=== PATIENT | female | born 1965 | race Caucasian/White ===

== ENCOUNTER 2017-09-01 16:34 | Inpatient (IN) ==
--- OUTSIDE RECORDS SUMMARY | 2017-09-01 17:55 | External Medical Summary ---
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
--- OUTSIDE RECORDS SUMMARY | 2017-09-01 17:55 | External Medical Summary ---
:1965 Author Organization [employer] Care Team Providers Name Role Phone Crystal Goldstein Provider Role Unavailable Allergies No Known Allergies Problems No Known Problems Medications No Known Medications Results No Known Results Summary Purpose [employer] Submission
[2017-09-01] MEDS ORDERED: NS 1,000 ML IV ONE (18:07)
--- NOTE | 2017-09-01 18:27 | Emergency Department Report ---
Extremity Problem HPI - General Chief complaint: Extremity Problem,Nontraumatic Stated complaint: R leg Sore turning black Time Seen by Provider: 09/01/17 17:49 Source: patient, RN notes reviewed, old records reviewed Mode of arrival: ambulatory Limitations: no limitations - History of Present Illness HPI Narrative: 51yo woman presents to the ER for evaluation of RLE redness and swelling. Pt developed redness, pain, and swelling on her right, medial knee appx one month ago. Since then, pt has been evaluated and treated numerous times for superficial thrombophlebitis - has had at least 3 DVT US that were negative for DVT. Pt has taken NSAIDs, various atbx, and norco all without relief of her sx. She represents to the ER tonight, two days after her last eval/US for development of increasing redness, a purple locus in the center, and severe pain. MD Complaint: extremity pain Onset (ago): week(s) (4) Consistency: constant Location: right, lower extremity, knee Severity scale (1-10): 8 Quality: burning, stabbing, sharp Radiation: none Relieving factors: nothing Exacerbating factors: range of motion, palpation Associated symptoms: denies other symptoms - Related Data Home Medications Medication Instructions Recorded Confirmed Acetaminophen [Acetaminophen Extra 1,000 mg PO Q6H PRN 08/19/17 09/01/17 Strength] cephALEXin [Cephalexin] 500 mg PO QID 09/01/17 09/01/17 Previous Rx's Medication Instructions Recorded Hydrocodone/APAP 5/325 [[place] 1 - 2 tab PO Q4-6HPRN PRN #20 tab 08/29/17 5/325] Sulfamethox/Tmp [Bactrim Ds] 1 tab PO BID #20 tab 08/29/17 Allergies Allergy/AdvReac Type Severity Reaction Status Date / Time No Known Allergies Allergy Verified 09/01/17 17:06 Review of Systems All systems: reviewed and negative except as stated Musculoskeletal: Reports: as per HPI, joint swelling. 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 Physical Exam - Limitations Limitations: no limitations - General General appearance: alert, in no apparent distress - Normal Exams: Head:: Normocephalic without trauma Eyes:: Pupils are PERRLA w/ EOMI, No scleral icterus, irritation, or foreign bodies noted ENMT:: No facial trauma, nasal exudates, pharyngeal erythema, or exudates are noted Neck:: Full range of motion, without adenopathy Lymphatic:: No lymphadenopathy Musculoskeletal:: No tenderness, or deformity noted Neurological:: Patient is alert, and oriented Psychiatric:: Patient exhibits, appropriate attention - Expanded Lower Extremity Exam right 1 - Erythema, induration, and central purple locus of 2cm size 2 - Erythema, induration - Skin Skin exam: Present: warm, dry, intact, rash Course - Consultations Consultation #1: [place] Telemed: Will admit pt for observation, line placement, and coordination of outpt atbx. Vital Signs Temperature 98.7 F 09/01/17 16:45 Pulse Rate 72 09/01/17 16:45 Respiratory Rate 16 09/01/17 16:45 Blood Pressure 125/72 09/01/17 16:45 Pulse Oximetry 99 09/01/17 16:45 Temperature 97.6 F 09/01/17 21:32 Pulse Rate 88 09/01/17 21:36 Respiratory Rate 20 09/01/17 21:36 Blood Pressure 124/66 09/01/17 21:32 Pulse Oximetry 98 09/01/17 21:36 Extremity Problem, Nontraumati - MDM Narrative Medical decision making narrative: Pt with suppurative thrombophlebitis. After reviewing the relevant literature and treatment guidelines, IV atbx, blood culx, and labs ordered. Pt is not septic at this time. Discussed case with hospitalist, who will admit and treat overnight. Pt will need a line placed for outpt IV ATBX. Pt transferred to the floor for further care. - Differential Diagnosis Likely: gout, cellulitis, superficial thrombophlebitis (Suppurative thrombophlebitis), lower extremity edema. Unlikely: deep vein thrombosis of lower extremity - Medical Records Attestation: I reviewed the patient's medical records. - Lab Data Attestation: I reviewed the patient's lab results. Result diagrams: 09/01/17 18:28 09/01/17 18:27 Lab Results 09/01/17 09/01/17 09/01/17 Range/Units 18:27 18:28 19:20 WBC 6.4 (4.5-11.0) T/MM3 RBC 4.04 (4.00-5.20) M/MM3 Hgb 11.6 L (12-16) GM/DL Hct 35.5 L (36-46) % MCV 87.9 (80-100) UM3 MCH 28.7 (26-34) UUG MCHC 32.7 (31-37) GM/DL RDW Std Deviation 40.4 (36.9-50.2) FL Plt Count 246 (130-400) T/MM3 MPV 10.9 (9.4-12.4) UM3 Immature Gran % (Auto) 0.2 (0.0-0.5) % Neut % (Auto) 67.4 H (33-66) % Lymph % (Auto) 21.5 L (23-45) % [place] % (Auto) 9.5 H (0-9.0) % Eos % (Auto) 1.1 (0-4) % Baso % (Auto) 0.3 (0-2) % Neut # (Auto) 4.3 (1.8-7.7) T/MM3 Lymph # (Auto) 1.4 (1-4.8) T/MM3 [place] # (Auto) 0.6 (0-0.8) T/MM3 Eos # (Auto) 0.1 (0-0.5) T/MM3 Baso # (Auto) 0.0 (0-0.2) T/MM3 Abs Immat Gran (auto) 0.01 (0.00-0.03) T/MM3 Turbidity < 20 (0-20) Sodium 144 (134-144) MEQ/L Potassium 3.8 (3.6-5) MEQ/L Chloride 104 (98-107) MEQ/L Carbon Dioxide 26 (22-30) MEQ/L Anion Gap 14 (5-15) MEQ/L BUN 14.0 (7-17) MG/DL Creatinine 0.8 (0.7-1.2) mg/dL GFR Calculation 75 BUN/Creatinine Ratio 18 (6-26) RATIO Glucose 88 (65-110) MG/DL Calculated Osmolality 277 (261-280) MOSM/KG Calcium 9.3 (8.4-10.2) MG/DL Icterus Index < 2 (0-7) Plasma Lactate 0.6 (0.6-2.2) MMOL/L Specimen Hemolysis < 15 (0-25) Ur Collection Type Urine, void-cc/notcc Urine Color Yellow (YELLOW) Urine Clarity Clear Urine pH 6.0 (5.0-8.0) Ur Specific [place] >=1.030 H (1.015-1.025) Urine Protein 2+ A (NEGATIVE) Urine Glucose (UA) Negative (NEGATIVE) Urine Ketones Negative (NEGATIVE) Urine Occult Blood Trace-intact (NEGATIVE) Urine Nitrate Negative (NEGATIVE) Urine Bilirubin Negative (NEGATIVE) Urine Urobilinogen 2.0 (NORMAL) EU/DL Ur Leukocyte Esterase Negative (NEGATIVE) Urine RBC 0-1 (0-3) /HPF Urine WBC 0-1 (0-5) /HPF Ur Squamous Epith Cells 5-10 Urine Bacteria Trace H (NEGATIVE) Urine Mucus Present Ur Culture Indicated? Cult not indicated - Radiology Data Attestation: I reviewed the patient's radiology results. CXR: No acute CT pathology. Disposition Clinical Impression: superiative thrombophlebitis Disposition: To [facility] Condition: Stable - Seen By: physician
[2017-09-01] MEDS: SALINE FLUSH 10ml SYRINGE IVF PRN ×2 (19:02→22:04)
[2017-09-01] MEDS ORDERED: MORPHINE SULFATE 4mg INJECTION IVP PRN (20:33)
[2017-09-01] MEDS ORDERED: KETOROLAC 15 MG/ML INJECTION IVP ONE (20:33)
[2017-09-01] MEDS ORDERED: ONDANSETRON 4 MG/2 ML INJECTION IVP PRN (20:33)
[2017-09-01 21:38] VITALS: BMI 26.6
[2017-09-01] MEDS ORDERED: ENOXAPARIN 40 MG/0.4 ML INJECTION SQ ONE (22:00)
[2017-09-01] MEDS: CEFEPIME 1 GM in NS 100 ML IV ONE ×2 (22:00→23:00)
[2017-09-01] MEDS: ENOXAPARIN 40 MG/0.4 ML INJECTION SQ SCH (22:03)
[2017-09-01] MEDS ORDERED: DiphenhydrAMINE 50 MG/ML INJECTION IVP ONE (22:04)
[2017-09-01] MEDS ORDERED: ACETAMINOPHEN 650 MG/20.3 ML SOLUTION PO PRN (22:04)
--- NOTE | 2017-09-01 22:08 | History & Physical Report ---
History of Present Illness Date: 09/01/17 Chief complaint: R leg pain HPI: Patient seen via telemedicine with nursing assistance on 09/01/2017 Mrs. Hsu is a pleasant 51yo woman with h/o endometriosis, shingles, NFKB1 ( son with thrombocytopenia--an immune process with antibody formation to platelets with bleeding, etc, with patient only tested for this and positive...no bleeding diatheses). She presents with 2 weeks of R leg pain with courses of cephalexin and 2 days ago stared on bactrim after 2nd LE doppler negative for DVT. No fevers or chills, but nausea and emesis after taking available lortab. No sob or CP. No real varicose vein hx, and has not had trouble before. 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 Cholecystectomy 1999 Family History: Family History (Last Updated 05/24/17 @ 10:03 by Disha Stuart RN) Mother Aneurysm Maternal Grandmother Cancer of breast Maternal Aunt Cancer of breast Brother Lymphoblastic (diffuse) lymphoma, intra-abdominal lymph nodes Hodgkins disease Father Cancer of colon Family History Updates: mother of brain hemorrhage. 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 Medications Home Medications Medication Instructions Recorded Confirmed Type Acetaminophen [Acetaminophen Extra 1,000 mg PO Q6H PRN 08/19/17 09/01/17 History Strength] Hydrocodone/APAP 5/325 [[place] 1 - 2 tab PO Q4-6HPRN PRN #20 tab 08/29/17 Rx 5/325] Sulfamethox/Tmp [Bactrim Ds] 1 tab PO BID #20 tab 08/29/17 09/01/17 Rx cephALEXin [Cephalexin] 500 mg PO QID 09/01/17 09/01/17 History Allergies Allergy/AdvReac Type Severity Reaction Status Date / Time No Known Allergies Allergy Verified 09/01/17 17:06 Exam Vital Signs: Temperature 97.6 F 09/01/17 21:32 Pulse Rate 88 09/01/17 21:36 Respiratory Rate 20 09/01/17 21:36 Blood Pressure 124/66 09/01/17 21:32 Pulse Oximetry 98 09/01/17 21:36 Telemetry Rhythm: Sinus Rhythm Height/Weight/BMI: Height 1.73 m Weight 79.6 kg Body Mass Index 26.6 - Constitutional Present: mild distress - Routine HEENT Exam Head: Present: normocephalic, atraumatic Eye: Present: EOMI - Routine Neck Exam Present: full ROM - Routine Respiratory Exam Present: CTA bilaterally. Absent: accessory muscle use - Routine Cardiovascular Exam Present: RRR, S1, S2, no murmur - Routine Abdominal Exam Present: soft, normoactive bowel sounds. Absent: tenderness - Routine Extremities Exam Absent: cyanosis, clubbing, edema Comments: has a 3-4 cm area of darkness with no ulceration medial-posterior to R knee to thigh with nearly 10cm area around with erythema. Warm per nursing staph. Results - Labs CBC & Chem 7: 09/01/17 18:28 09/01/17 18:27 Assessment and Plan (1) Thrombophlebitis Current visit: Yes Status: Acute (2) Cellulitis Current visit: Yes Status: Acute Assessment and Plan: Superficial and now supperative thrombophlebitis with cellulitis--vancomycin with initial flushing improved with rate decreased. Benadryl IV once and monitor before the one time dose of cefepime prescribed by ED staff. Continue vanco with DVT prophylaxis lovenox, repeat labs and toradol once for pain ( likely would benefit from naproxen BID starting tomorrow with no recent NSAIDs) . May ultimately need gen surg consult if full abscess forms/evident. DVT Prophylaxis: Lovenox Resuscitation Status: Full Code - Physician Narrative Narrative: Date: 09/01/17 Time: 2204 Hospital Course Summary Disclaimer: The visit summary below is not to be considered part of the above Progress Note.
[2017-09-01] MEDS: LR 1,000 ML IV SCH (22:31)
--- NOTE | 2017-09-02 08:02 | XRay Report ---
Indication: Superficial thrombophlebitis PROCEDURE: XR chest 1V: Encounter: Initial Comparison: None FINDINGS: The lungs are clear. There is no abnormal airspace opacity, pleural effusion or pneumothorax identified. The heart size, pulmonary vasculature and mediastinum are within normal limits. No significant skeletal abnormality is seen. IMPRESSION: No acute cardiopulmonary abnormality. .
[2017-09-02] MEDS: LR 1,000 ML IV SCH (08:24)
[2017-09-02] MEDS: ACETAMINOPHEN 325 MG TABLET PO PRN ×2 (08:25→14:35)
[2017-09-02] MEDS: VANCOMYCIN 1,500 MG in NS 500 ML IV SCH (09:58)
--- NOTE | 2017-09-02 10:48 | History & Physical Report ---
History of Present Illness Date: 09/02/17 HPI: Patient is a 51 year old female with history of NFKB1 gene mutation (reportedly asymptomatic) who presents with concerns of thrombophlebitis. Patient has has recurrent issues in the same area of inner right knee/thigh for the previous 2 years. She has been managed by PCP and has had multiple ultrasounds negative for DVT over that time. She was recently started on Keflex and Bactrim for two days. She presented to ED due to color change and increase in size of area. She was admitted for concerns of suppurative thrombophlebitis. Denies any fever or chills. [facility] Mouth/Throat: Absent: bleeding gums - Cardiovascular Cardiovascular: Absent: chest pain, palpitations Vascular: Present: phlebitis. Absent: Raynaud's, intermittent claudication, pedal edema, varicosities - Respiratory Respiratory: Absent: cough, dyspnea - Gastrointestinal Gastrointestinal: Absent: abdominal pain, change in bowel habits - Musculoskeletal Musculoskeletal: Absent: arthralgias, myalgias - Integumentary/Breasts Integumentary: Present: erythema, lesions. 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 Cholecystectomy 1999 Family History Updates: Family History (Last Updated 05/24/17 @ 10:03 by Disha Stuart RN). Mother. Aneurysm. Maternal Grandmother. Cancer of breast. Maternal Aunt. Cancer of breast. Brother. Lymphoblastic (diffuse) lymphoma, intra-abdominal lymph nodes. Hodgkins disease. Father. Cancer of colon - Social History Smoking status: Never smoker Medications Home Medications Medication Instructions Recorded Confirmed Type Acetaminophen [Acetaminophen Extra 1,000 mg PO Q6H PRN 08/19/17 09/01/17 History Strength] Hydrocodone/APAP 5/325 [[place] 1 - 2 tab PO Q4-6HPRN PRN #20 tab 03/26/18 03/29/ 18 Rx 5/325] Sulfamethox/Tmp [Bactrim Ds] 1 tab PO BID #20 tab 08/29/17 09/01/17 Rx cephALEXin [Cephalexin] 500 mg PO QID 09/01/17 09/01/17 History Allergies Allergy/AdvReac Type Severity Reaction Status Date / Time No Known Allergies Allergy Verified 09/01/17 17:06 Exam Vital Signs: Temperature 97.2 F 09/02/17 07:29 Pulse Rate 74 09/02/17 07:29 Respiratory Rate 12 09/02/17 07:29 Blood Pressure 101/69 09/02/17 07:29 Pulse Oximetry 99 09/02/17 07:29 Height/Weight/BMI: Height 5 ft 8 in Weight 80.3 kg Body Mass Index 26.6 - Constitutional Present: no acute distress, well nourished, well developed - Routine HEENT Exam Head: Present: normocephalic, atraumatic Eye: Present: EOMI, conjunctivae pink ENT: Present: mucous membranes moist, nares patent - Routine Neck Exam Present: supple, full ROM. Absent: JVD - Routine Respiratory Exam Present: CTA bilaterally. Absent: respiratory distress - Routine Cardiovascular Exam Present: RRR, no murmur - Routine Abdominal Exam Present: soft, normoactive bowel sounds, non distended, non tender - Routine Extremities Exam Comments: erythema/purplish discoloration and swelling with tenderness RLE inner knee/ thigh, no drainage - Routine Skin Exam Present: intact, erythema, dry, warm - Routine Neurological Exam Present: alert, oriented X3, CN II-XII intact - Routine Psychiatric Exam Present: normal affect, normal thought process Results - Labs CBC & Chem 7: 09/01/17 18:28 09/02/17 05:09 Assessment and Plan (1) Thrombophlebitis Current visit: Yes Status: Acute (2) Cellulitis Current visit: Yes Status: Acute Assessment and Plan: Assessment Superficial thrombophlebitis with concern for cellulitis Pain NFKB1 gene mutation-asymptomatic Plan Continue abx: Vanc and Ceftriaxone Continue DVT ppx PRN medications for pain control Obtain ultrasound Follow blood cultures, labs and vitals: no current systemic signs Surgery consult not indicated at this time but will monitor closely DVT Prophylaxis: Lovenox Resuscitation Status: Full Code - Physician Narrative Physician: other (Marion Cesar MD) Narrative: Date: 09/02/17 Time: 1045 Hospital Course Summary Disclaimer: The visit summary below is not to be considered part of the above Progress Note.
--- NOTE | 2017-09-02 10:58 | Ultrasound Report ---
Indication: area behind right knee PROCEDURE: US venous doppler LE RT: Encounter: Initial Comparison: August 29, 2017 Technique: Color Doppler duplex and grayscale sonographic imaging of the right lower extremity was performed. Findings: There is no evidence for acute deep venous thrombosis in the right thigh. Specifically, serial graded compression was performed from the inguinal ligament to the popliteal bifurcation, on the right thigh, demonstrating appropriate compressibility of the deep venous system. In addition, color and pulsed Doppler demonstrate appropriate spontaneous flow, variation with respiration, and augmentation with calf compression. At the ankle, normal flow is identified in the posterior tibial veins; these vessels are also normal in caliber. Dilated thrombosed varicose veins in the medial knee area of palpable abnormality. Impression: No evidence of acute DVT in the right lower limb. Superficial thrombophlebitis. .
[2017-09-02] MEDS: ENOXAPARIN 40 MG/0.4 ML INJECTION SQ SCH (11:31)
[2017-09-02] MEDS ORDERED: CEFTRIAXONE 1 G in NS 50 ML IV SCH (13:00)
--- NOTE | 2017-09-02 13:40 | Pharmacy Consult-Antibiotics ---
Pharmacy Consult-Vancomycin - Laboratory Information WBC 6.4 T/MM3 (4.5-11.0) 09/01/17 18:28 BUN 15.0 MG/DL (7-17) 09/02/17 05:09 Creatinine 0.8 mg/dL (0.7-1.2) 09/02/17 05:09 - Consult Information VANCOMYCIN CONSULT: Dx: Cellulitis on right leg inner thigh/knee. Patient has had a recurrent problem in this area. Treated outpatient with Cephalexin without improvement. Vancomycin 2 grams was given as a once dose the evening of 09/01/17. Current Renal Fx: SCr = 0.8 mg/dl. Will give Vancomycin 1500mg IV q12hrs. Will continue to monitor and adjust regimen to maintain therapeutic levels. Thank you. Svitlana Taylor, MarkoD
[2017-09-02] MEDS: CEFTRIAXONE 1 G in NS 50 ML IV SCH (15:22)
[2017-09-02] MEDS: Oxycodone/Acetaminophen 5/325 1 TAB PO PRN (21:46)
[2017-09-03] MEDS: VANCOMYCIN 1,500 MG in NS 500 ML IV SCH ×2 (03:13→14:17)
[2017-09-03] MEDS: Oxycodone/Acetaminophen 5/325 1 TAB PO PRN ×3 (03:38→22:55)
[2017-09-03 07:52] VITALS: RESP 16
[2017-09-03] MEDS: ENOXAPARIN 40 MG/0.4 ML INJECTION SQ SCH (08:55)
--- NOTE | 2017-09-03 15:26 | Progress Note ---
- Date 09/03/17 Subjective: Svitlana is seen today in follow up. She continues to have some swelling and pain at site of superficial thrombus. She feels the outlined area has expanded a bit since yesterday. Denies any fever or chills. Does not report any other acute concerns. Her and son are at bedside. D/W Dr. Block and chart reviewed for collateral information. Objective Vital signs: Temperature 98.1 F 09/03/17 11:03 Pulse Rate 96 09/03/17 11:03 Respiratory Rate 16 09/03/17 11:03 Blood Pressure 114/69 09/03/17 11:03 Pulse Oximetry 95 09/03/17 11:03 Height/Weight/BMI: Height 1.73 m Weight 75.9 kg Body Mass Index 26.6 - Constitutional Present: no acute distress, well nourished, average body habitus, cooperative - Routine HEENT Exam Head: Present: normocephalic, atraumatic Eye: Present: EOMI, PERRL ENT: Present: mucous membranes moist Comments: She does have facial redness and rash on both cheeks and across bridge of her nose. - Routine Respiratory Exam Present: CTA bilaterally. Absent: rales, rhonchi, crackles - Routine Cardiovascular Exam Present: RRR, S1, S2, no murmur - Routine Abdominal Exam Present: soft, normoactive bowel sounds, non distended, non tender - Routine Extremities Exam Present: full ROM, normal capillary refill, joint swelling (Some erythema, swelling right medial knee/thigh. Area of thrombophlebitis extend past level of markings. Approx 2 cm darkened area , possible underlying escar? ). Absent: extremity cold to touch - Routine Musculoskeletal Exam Musculoskeletal: Present: normal strength, limited range of motion - Routine Skin Exam Present: intact, dry, warm - Routine Neurological Exam Present: alert, oriented X3, moving all extremities - Routine Psychiatric Exam Present: normal affect, cooperative Results - Labs CBC & Chem 7: 09/03/17 04:45 09/03/17 04:45 - Impressions venous doppler reviewed. Assessment and Plan (1) Thrombophlebitis Current visit: Yes Status: Acute (2) Cellulitis Current visit: Yes Status: Acute Assessment and Plan: Assessment: Superficial thrombophlebitis with concern for cellulitis, recurrent Pain NFKB1 gene mutation-asymptomatic (Followed by [facility]) Facial rash Plan: 09/03/17 Continue abx: Vanc and Ceftriaxone Continue DVT ppx- LMWH PRN medications for pain control US reveals superficial thrombophlebitis- could consider home with antiplatelet therapy- Dr. Block will contact [facility] for more information on this mutation and any specific needs. BC NGTD. She is not febrile. Continue Ceftriaxone, Vanco. Surgery consult not indicated at this time but will monitor closely- could consider soft tissue sono and/or referral to vascular surgery if symptoms persist. Facial rash- if not done, perhaps autoimmune eval would be indicated as an outpatient. Add KPad to help with area of phlebitis. DVT Prophylaxis: Lovenox Resuscitation Status: Full Code - Physician Narrative Physician: Hope Block MD Narrative: Date: 09/03/17 Time: 1800 I have independently evaluated and examined this patient. I reviewed the chart, the patient's history, and the [employer]/PA's documented findings as above. We discussed and formulated the assessment and plan as above with additions as below: Svitlana describes persistent pain in the medial right knee with some extension inferiorly. She denies dyspnea or GI symptoms. She's had intermittent superficial thrombophlebitis for the past 8 years with symptoms acutely present for about 2 weeks. Venous Dopplers were obtained at [facility] when she was there recently but she subsequently developed discolored area medially just above the knee prompting further evaluation. There is a dusky 1.5 cm area was 5 cm surrounding faint erythema along the medial right knee (dusky area is just above the knee). The area is firm and quite tender. Erythema has regressed from to marked lines proximally but extended distally as has the firm tender tissue. Superficial thrombophlebitis with questionable necrosis. Blood cultures remain negative and there is no fever or leukocytosis to suggest systemic infection. Unclear that antibiotics are needed but will continue overnight. Calls placed to coordinators at [facility] although I doubt I will be able to contact anyone there until Tuesday. Request surgical consultation. 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 Hospital Course Summary Disclaimer: The visit summary below is not to be considered part of the above Progress Note. Hospital Course: Assessment: Superficial thrombophlebitis with concern for cellulitis, recurrent Pain NFKB1 gene mutation-asymptomatic (Followed by [facility]) Facial rash Plan: 09/03/17 Continue abx: Vanc and Ceftriaxone Continue DVT ppx- LMWH PRN medications for pain control US reveals superficial thrombophlebitis- could consider home with antiplatelet therapy- Dr. Block will contact [facility] for more information on this mutation and any specific needs. BC NGTD. She is not febrile. Continue Ceftriaxone, Vanco. Surgery consult not indicated at this time but will monitor closely- could consider soft tissue sono and/or referral to vascular surgery if symptoms persist. Facial rash- if not done, perhaps autoimmune eval would be indicated as an outpatient. Add KPad to help with area of phlebitis.
[2017-09-03] MEDS: CEFTRIAXONE 1 G in NS 50 ML IV SCH (16:39)
[2017-09-04] MEDS: VANCOMYCIN 1,500 MG in NS 500 ML IV SCH ×2 (02:05→13:46)
[2017-09-04] MEDS: ENOXAPARIN 40 MG/0.4 ML INJECTION SQ SCH (08:33)
[2017-09-04] MEDS: Oxycodone/Acetaminophen 5/325 1 TAB PO PRN (08:33)
[2017-09-04 11:21] VITALS: BP 106/67; PULSE 74; TEMP 97; O2SAT 96
--- NOTE | 2017-09-04 11:22 | Pharmacy Consult-Antibiotics ---
Pharmacy Consult-Vancomycin - Laboratory Information WBC 5.3 T/MM3 (4.5-11.0) 09/04/17 04:05 BUN 10.0 MG/DL (7-17) 09/04/17 04:05 Creatinine 0.7 mg/dL (0.7-1.2) 09/04/17 04:05 - Consult Information VANCOMYCIN CONSULT: DAY 4 Today's SCr = 0.7 mg/dl. WBC'S = 5.3 Patient also on Rocephin 1 gm IV q24hrs Will continue with Vancomycin 1500 mg IV q12hrs. Trough ordered for Tuesday09/05/17 Will continue to monitor and make adjustments accordingly. Thank you. Svitlana Taylor, MarkoD
--- NOTE | 2017-09-04 15:50 | Discharge Summary ---
Discharge Information Date of admission: 09/01/17 21:15 Anticipated date of discharge: 09/04/17 Attending Physician: Hope Block MD Primary care physician: Crystal Goldstein APRN Consults: Consulting Provider: Julio Lopez Reason For Exam: superficial thrombophlebitis - Discharge Diagnosis (1) Superficial thrombophlebitis Status: Acute Superficial thrombophlebitis with concern for cellulitis, recurrent Varicose veins, right lower extremity Pain, right leg NFKB1 gene mutation-asymptomatic (Followed at [facility]) Facial rash - Laboratory Labs: White count on admission was 6.4 with unremarkable differential. Electrolytes and renal function were normal on admission. Lactic acid 0.62 on the date of admission. CRP 34.7 on 09/04/17 (normal range 0-9) 09/04/17 04:05 09/04/17 04:05 - Microbiology Blood cultures and urine culture obtained 09/01 negative at discharge - Radiology Radiology: Chest x-ray on 09/01/17 revealed no acute cardiopulmonary abnormality Venous Doppler right lower extremity on 09/02/17: There is no evidence for acute deep venous thrombosis in the right thigh. Specifically, serial graded compression was performed from the inguinal ligament to the popliteal bifurcation, on the right thigh, demonstrating appropriate compressibility of the deep venous system. In addition, color and pulsed Doppler demonstrate appropriate spontaneous flow, variation with respiration, and augmentation with calf compression. At the ankle, normal flow is identified in the posterior tibial veins; these vessels are also normal in caliber. Dilated thrombosed varicose veins in the medial knee area of palpable abnormality. Impression: No evidence of acute DVT in the right lower limb. Superficial thrombophlebitis. History of Present Illness HPI: Patient is a 51 year old female with history of NFKB1 gene mutation (reportedly asymptomatic) who presents with concerns of thrombophlebitis. Patient has has recurrent/intermittent issues in the same area of inner right knee/thigh for 8 years. She has been managed by PCP and has had multiple ultrasounds negative for DVT over that time. She was recently started on Keflex and Bactrim for two day ago. She presented to ED due to color change and increase in size of area. She was admitted for concerns of possible suppurative thrombophlebitis. Denies any fever or chills. Objective Vital signs: Temperature 97.0 F 09/04/17 11:20 Pulse Rate 74 09/04/17 11:20 Respiratory Rate 16 09/04/17 11:20 Blood Pressure 106/67 09/04/17 11:20 Pulse Oximetry 96 09/04/17 11:20 NAD, alert, fluent speech Respirations nonlabored, good airflow, breath sounds clear Regular cardiac rhythm, S1-S2 Abdomen soft, nontender, bowel sounds present Right medial thigh with 5 cm area of faint erythema with central 1.5 cm dark area without ulceration-both appear barrel handler in color than they did yesterday; this overlies an area of superficial thrombus extending from about 10 cm above the medial right knee to similar distance below the right knee. There is generalized edema which is slightly improved compared to yesterday. Height/Weight/BMI: Height 1.73 m Weight 80.2 kg Body Mass Index 26.6 Hospital Course This is a general summary of the patient's hospital course. For more details refer to the complete medical record. Hospital course: Svitlana was admitted with recurrent superficial thrombophlebitis and concern of possible localized or systemic infection. She had previously been on combined Bactrim and cephalexin for 2 days having previously been on cephalexin 10 days earlier. Blood cultures were obtained and the patient was empirically treated with vancomycin and ceftriaxone pending blood culture results. It should be noted that the patient was not febrile on admission nor did she have leukocytosis. She did not describe systemic symptoms and lactic acid was not elevated. 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 She remained afebrile with normal white count throughout the hospital course. Blood cultures were negative after 48 hours extending into her third day. Her leg was elevated through much of the hospital stay with utilization of warm packs and conventional management of superficial thrombophlebitis. Venous Doppler again confirmed the absence of any deep vein thrombosis. She was seen in consultation by Dr. Lopez to exclude need for surgical intervention due to extent of the segment of thrombophlebitis and he recommended continued conservative care with warm packs and anti-inflammatories. She was felt stable for discharge on 09/04. At this time she noted that discoloration along the right leg was somewhat better and the swelling on the medial right knee has improved compared to several days earlier. Continued elevation of the leg and use of warm packs was recommended in conjunction with ibuprofen and compressive stockings. Thigh-high SERENA hose were fitted prior to discharge. Patient is asked to follow-up with her primary provider at [facility] in 3-5 days for reassessment and before she returns to work. She will additionally follow-up with her coordinator at [facility] in the event that recurrent thrombophlebitis is associated with the genetic mutation she is known to have. Discharge Plan - Discharge Disposition Discharge Date: 09/04/17 Disposition: Discharged Home, Self-Care *Condition: Stable Reason For Visit (Visit label in EMR): Thrombophlebitis/cellulitis - Discharge Medications *Discharge Medications: New Ibuprofen 400 - 600 mg PO QID PRN #25 cap PRN Reason: Pain Continue Acetaminophen [Acetaminophen Extra Strength] 1,000 mg PO Q6H PRN PRN Reason: Pain Hydrocodone/APAP 5/325 [[place] 5/325] 1 - 2 tab PO Q4-6HPRN PRN #20 tab PRN Reason: Pain Sulfamethox/Tmp [Bactrim Ds] 1 tab PO BID #20 tab Discontinued cephALEXin [Cephalexin] 500 mg PO QID - Discharge Packet/Instructions *Diet: Regular *Activity: As tolerate, elevate leg as much as you can *Pain Management/Treatment: Ibuprofen (purchase [id number]) 200 mg-take 2 or 3 tablets up to 4 times daily - used to decrease inflammation and pain. Can also use Tylenol or [place] to decrease pain but these will not help with inflammation. *Wound Care: Elevate leg frequently; wear compression stockings when standing or at work; use warm/moist packs on the area of thrombophlebitis to help control discomfort and help alleviate the superficial thrombus. Additional Instructions: Follow-up with Crystal Goldstein at [facility] later this week *Expected Signs/Symptoms: Discomfort along the right knee; swelling will increase the longer your standing or walking. *Notify Physician if: Fever, increasing area of redness or dark discoloration, bleeding from the thrombosed area *[facility] *After Business Hours Contact: Call [facility] at [phone] and ask that the on-call physician be paged for [facility] *Pending Lab/Results: Follow up w/Provider (final blood culture results- negative so far) - Referrals/Follow Up *Referrals/Follow Up: Crystal Goldstein APRN [Family Provider] - (3-5 days; see Crystal before your return to work) - Patient Handouts Patient Handouts: Superficial Thrombophlebitis (GEN) - Dismissal Complete Discharge Instructions are:: Complete Physician Narrative - Narrative Attestation Narrative: Date: 09/04/17 Time: [id number]
--- NOTE | 2017-09-05 08:50 | Consultation ---
DATE OF CONSULTATION 09/04/2017 FINDINGS Mrs. Hsu is a 51-year-old female whom I was asked to see today as a result of a possible necrotic wound involving her right medial knee region as a result of a significant bout of superficial thrombophlebitis. 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 The patient apparently has a NFKB1 gene mutation. The patient states that following her visit with [facility] in [place], this superficial thrombophlebitis has become significantly worse. She states that the redness involving her right medial knee has increased significantly as well as the pain associated with this superficial thrombophlebitis. The patient was admitted to our facility for intravenous antibiotics given the fact that she may have developed an associated cellulitis with this thrombophlebitis. She was begun empirically on antibiotics. The patient states that a few days ago there was an area that was becoming "purplish " within the central portion of this area of firmness and erythema. The patient states that this "purple area" has begun to improve as well as the surrounding redness. She continues to experience a fair amount of discomfort associated with this thrombophlebitis. Discomfort is made worse with ambulation or standing. Discomfort is made better by lying still with her leg elevated and utilizing heat. PAST MEDICAL HISTORY Chronic Illness/System Disorders: 1. History of urinary tract infection. 2. History of shingles. 3. History of NFKB1 gene mutation. MEDICATIONS Medications on admission included Tylenol, hydrocodone, Bactrim, and cephalexin. ALLERGIES No known drug allergies. PAST SURGICAL HISTORY 1. Appendectomy. 2. Cholecystectomy. FAMILY HISTORY Positive for breast cancer within a grandmother and aunt. She does have a family history within her brother for lymphoma - Hodgkin's disease. Her father has had colon cancer. Her mother as a result of an aneurysm. SOCIAL HISTORY The patient denies tobacco use. 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 REVIEW OF SYSTEMS Review of systems was undertaken with the patient and was essentially negative except as stated above in findings section and past medical history section for HEENT, Cardiac, Respiratory, GI, , Musculoskeletal, Hematologic/Oncologic ( positive for gene mutation), and Neurologic. PHYSICAL EXAMINATION GENERAL: The patient is a 51-year-old female who does not appear to be in acute distress today. VITALS: Temperature 97.0, pulse 74, respirations 16, blood pressure 106/67, SaO2 96% on room air. HEENT: Normocephalic. Pupils are equal, round and reactive to light and accommodation. NECK: Supple without lymphadenopathy. CHEST: Clear to auscultation bilaterally. HEART: Regular rate and rhythm. Normal S1 and S2 without gallops, murmurs or clicks. ABDOMEN: Palpation of the abdomen reveals it to be soft and nontender. I do not appreciate any evidence for hepatosplenomegaly or abnormal masses. EXTREMITIES: Attention was focused to the area of concern involving the right medial knee region. Just proximal to the medial knee involving the distal medial calf there is an area of erythema with a slight area of ecchymosis present within the central area of erythema. There is a visible area of prominence associated with this. Palpation does reveal a hard discrete mass beneath this area of erythema and slight ecchymosis consistent with her history for thrombophlebitis. The area of ecchymosis does vishal with pressure and re- perfuse. The skin is not frankly necrotic in nature. LABORATORY/RADIOGRAPH EVALUATION The patient's white count is stable at 5.3. Hemoglobin is 10.1. A BMP was obtained today and found to be without marked abnormalities. I have reviewed prior venous duplex scan performed on September 02, 2017 that revealed dilated thrombosed varicose veins in the medial knee overlying the area of palpable concern. There was no evidence for acute DVT. Final impression was that of superficial thrombophlebitis. PLAN I informed the patient that the mainstay of treatment for superficial thrombophlebitis is use of a nonsteroidal, elevation of the extremity, and heat. The patient informs me that the doctor at [facility] has discouraged her from taking ibuprofen. I informed the patient that from a general surgical standpoint I did not feel there was any need for surgical intervention. There is no area of alfonzo skin necrosis requiring excisional surgical debridement. I would recommend that we continue with current medical therapy. If the patient were to begin to develop increasing signs of cellulitis or possible development of underlying abscess or development of necrotic skin, please recontact if needed. Will go ahead and sign off the patient's care at this time. ANYA
== END 2017-09-04 16:45 | disposition home or self-care (01) | DRG 300 ==
LOC: ED 16:34 → SUATTDRO 21:15 → MED 21:15
PROVIDERS: ADMIT Hospitalist; ATTEND Internal Medicine